=== PATIENT | male | born 1950 | race Caucasian/White ===

== ENCOUNTER 2018-02-01 18:44 | Inpatient (IN) | payer MEDICARE, OTHER ==
[~2018-02-01] VITALS: Ht 166.3 cm; Wt 136.2 kg
--- NOTE | ~2018-02-01 | WRIGHTHP ---
[place], [place] PATIENT HISTORY AND PHYSICAL EXAM NAME: JOSE LUIS LAY UNIT #: [id number] ROOM: 316 DOCTOR: KATHARINE PETERS MD BIRTHDATE: [birth year] DOS: 02/02/2018 INITIAL PSYCHIATRIC EVALUATION CHIEF COMPLAINT: "I have just been losing it, things haven't been right at [facility]." HISTORY OF PRESENT ILLNESS: This is a 67-year-old white male known to me from previous psychiatric admissions here to the [facility] as well as his stay at several long-term care facilities in the [facility]. The patient currently resides at [facility] and his behavior has escalated over the last several weeks prior to this admission. The patient has not been attending to his ADLs, nor has he been caring for his belongings. He has been increasingly more agitated and aggressive. He has been throwing things and breaking them. He has been yelling repeatedly at staff and has made threats to hurt staff. He states some of this is because he is not receiving the help he needs, but does ultimately admit that he has been very short fused and irritable over the last several weeks. Complicating matters is he has had some ongoing physical issues. Most recently, he was hospitalized at [facility] for GI bleed and required 2 units of blood. He was to have a colonoscopy done, but they were unable to do it because the prep was unsuccessful. He is waiting a repeat colonoscopy. He is admitted now to the [facility] though to stabilize psychiatrically, to engage in individual and lambert milieu activity, returning back then to [facility] when stable. PAST MEDICAL HISTORY: Remarkable for osteoarthritis, hypertension, GERD, hyperlipidemia, history of DVT, hypertensive retinopathy, morbid obesity and a long history of schizoaffective disorder. MENTAL STATUS: The patient is alert and oriented with some mild time gaps. Mood does seem to be euthymic with some anxious overtones. He does endorse increased mood lability and agitation with a very short fuse. He does also seem to be at times preoccupied and does not always answer questions quickly. He does process slowly. Short-term memory has mild gaps plane car. DIAGNOSIS: Schizoaffective disorder. PLAN: I will need to find out when he received his last Invega Sustenna dose. We will plan to reload him early and at a slightly higher level. His serum ammonia level is mildly elevated at 42. He is on lactulose 10 grams b.i.d. I will increase this to 20 grams b.i.d. and repeat a serum ammonia level in several days, engage in individual and lambert milieu activity with the plan to return back to [facility] when stable. [place], [place] PATIENT HISTORY AND PHYSICAL EXAM NAME: JOSE LUIS LAY UNIT #: [id number] ROOM: [facility] DOCTOR: KATHARINE PETERS MD BIRTHDATE: [birth year] KATHARINE PETERS MD CM:HISPHYS:PATIENT HISTORY AND PHYSICAL EXAMINATION [id number] KATHARINE PETERS MD 02/02/18 1107 interface
--- NOTE | ~2018-02-01 | PR ---
[place], [place] PROGRESS NOTE NAME: JOSE LUIS LAY UNIT #: [id number] ROOM: 316 DOCTOR: KATHARINE JEONG MD BIRTHDATE: [birth year] DOS: 02/06/2018 CHIEF COMPLAINT: "I think I am feeling better, thank you Dr. Jeong." SUMMARY OF THE VISIT: The patient was interviewed as he completed his breakfast. He had eaten the entire breakfast and was sitting, conversing with male peers. He stopped and engaged in conversation with me, reporting that he does feel that he is getting better. His depression has lessened and his mood lability and short fuse have also improved. He has not lost his temper for several days now and does seem to be tolerating the current medication regimen well. MENTAL STATUS: He is alert and oriented with some time gaps. Mood does seem to be strongly trending towards euthymia. Affect is much more appropriate. There is no elvis or hypomania. There are no overt auditory or visual hallucinations. No delusions, no paranoia. Short, intermediate and long-term memories are for the most part grossly intact. PLAN: I will check a lithium level in the morning to ensure that it is therapeutic, continue to engage in individual and lambert milieu activity with the plan to return to the least restrictive environment when psychiatrically stable. KATHARINE JEONG MD CM:PNTRANS [id number] KATHARINE JEONG MD 02/06/18 0950 interface
--- NOTE | ~2018-02-01 | PR ---
[place], [place] PROGRESS NOTE NAME: JOSE LUIS LAY UNIT #: [id number] ROOM: 316 DOCTOR: KATHARINE PETERS MD BIRTHDATE: [birth year] DOS: 02/03/2018 CHIEF COMPLAINT: "I hope I get to go back to [facility], I like it there, that is my home now." SUMMARY OF THE VISIT: The patient was interviewed as he rested quietly in bed. He engaged readily in conversation. He reports that he is starting to feel a little bit better, but is hopeful he can still go back to [facility]. He is fearful that they may not let him go back because his behavior was so problematic. MENTAL STATUS: He is alert and oriented with some time gaps. Mood does seem to be trending towards euthymia. Affect is more appropriate. There is still some mood lability and he is easily agitated at times, mood shifts quickly. There are no auditory or visual hallucinations. Memory has minor gaps, but otherwise he is intact. PLAN: I will go ahead and order his next dose of Invega Sustenna for February 17 at 156 mg IM. I will augment with Lithobid 300 mg twice daily. I will stay away from augmenting with Depakote given his elevated ammonia level. We will engage in individual and lambert milieu activity with the plan to return to the least restrictive environment when psychiatrically stable. KATHARINE PETERS MD CM:PNTRANS [id number] KATHARINE PETERS MD 02/03/18 1042 interface
--- NOTE | ~2018-02-01 | PR ---
[place], [place] PROGRESS NOTE NAME: JOSE LUIS LAY UNIT #: [id number] ROOM: 316 DOCTOR: KATHARINE JEONG MD BIRTHDATE: [birth year] DOS: 02/05/2018 CHIEF COMPLAINT: "I still feel up and down, but I am better Dr. Jeong." SUMMARY OF THE VISIT: The patient was interviewed in his room. He reports that he does think he is feeling better since I added the lithium. Nurses report he still had some periods yesterday where he burst into tears and stated that he was hopeful that he would get even more well than he is now. He is tolerating the current medication regimen well. MENTAL STATUS: He is alert and oriented with some time gaps. Mood does seem to be trending towards euthymia. Affect is more appropriate. There is no elvis or hypomania. There are no overt auditory or visual hallucinations, delusions or paranoia. Memory for the most part is intact. PLAN: I will increase his Lithobid from 300 mg twice a day to 3 times a day to try to improve his mood stability. We will engage in individual and lambert milieu activity, returning to [facility] when stable. KATHARINE JEONG MD CM:PNTRANS KATHARINE JEONG MD 02/05/18 0935 interface
--- NOTE | ~2018-02-01 | DS ---
[place], [place] DISCHARGE SUMMARY NAME: JOSE LUIS LAY UNIT #: [id number] ROOM: 316 DOCTOR: KATHARINE PETERS MD BIRTHDATE: [birth year] DOS: 02/07/2018 CHIEF COMPLAINT: "I have been losing at things, haven't been right at [place]." HISTORY OF PRESENT ILLNESS: This is a 67-year-old white male known to me from his previous psychiatric admissions to the [facility] as well as several stays in long-term care facilities in the [facility]. Most recently, the patient has been residing at [facility] in [place]. His behavior prior to this admission has escalated over the last several weeks, with the patient not attending to his ADLs. He has not been bathing, shaving or changing his clothes. He has not been taking care of his belongings. In fact, most recently, he was throwing his belongings around, breaking them and almost broke his television. When staff tried to intervene, he became increasingly more agitated and aggressive towards them. The patient does openly admit to being short fused and irritable and has found himself not sleeping or eating well as well as finding himself being unable to cope with the day to day activity at [facility]. He is admitted now to rule out any organic factors, to stabilize on medication, to engage in individual and lambert milieu activity with the ultimate plan to return to the least restrictive environment when psychiatrically stable. PAST MEDICAL HISTORY: Remarkable for osteoarthritis, hypertension, GERD, hyperlipidemia, hypertensive retinopathy, morbid obesity, history of DVT, history of a recent GI bleed as well as a long history of schizoaffective disorder. SUMMARY OF HOSPITAL COURSE: The patient was admitted to the unit where his Invega Sustenna dose was given slightly earlier and a slightly higher dose. He was receiving 117 mg IM every 30 days, instead I gave him 156 mg IM and to repeat that every 30 days since he seemed to be breaking just at the tail end of the dose ending. Additionally, routine screening examinations upon admission showed him to have a mildly elevated serum ammonia level at 42, so his lactulose was increased from 10 grams b.i.d. to 20 grams b.i.d. in an effort to control this. He continued to complain of feeling rather short fused and irritable. For this reason, his Invega was augmented with lithium, first at 300 mg twice daily and then at 300 mg 3 times a day with excellent results. I specifically avoided augmenting with Depakote given the fact that he was having already elevated serum ammonia levels and I did not want to tax his liver further. He tolerated the lithium well. He exhibited no tremor or other side effects from the lithium. A lithium level on the day of discharge was just barely subtherapeutic at 0.57. I will follow this once he has returned to [place]. He had improved sufficiently with the combination of higher dose Invega Sustenna and lithium to the point where he could easily return back to [facility] and have further followup. MENTAL STATUS AT DISCHARGE: He is alert and oriented to person, place and very approximate to time. Mood does seem to be strongly trending towards euthymia. Affect is much more appropriate. There is no elvis or hypomania. There are no overt auditory or visual hallucinations. No delusions, no paranoia. [place], [place] DISCHARGE SUMMARY NAME: JOSE LUIS LAY UNIT #: [id number] ROOM: [facility] DOCTOR: KATHARINE PETERS MD BIRTHDATE: [birth year] intermediate and long-term memories are relatively fully intact. FINAL DIAGNOSES: Schizoaffective disorder and obsessive compulsive disorder. DISPOSITION: The patient is to return back to [facility]. I will follow him upon his return there. All of his prescriptions have been printed and will be sent with him. Medically and psychiatrically he is stable. His biopsychosocial needs are adequately being met by the staff at [facility]. KATHARINE PETERS MD CM:DISCHHAIDER 0934 KATHARINE PETERS MD 02/07/1851 interface
--- NOTE | ~2018-02-01 | PR ---
[place], [place] PROGRESS NOTE NAME: JOSE LUIS LAY UNIT #: [id number] ROOM: 316 DOCTOR: KATHARINE PETERS MD BIRTHDATE: [birth year] DOS: 02/04/2018 CHIEF COMPLAINT: "I think I feel better. "I hope I get to go back to [place] soon." SUMMARY OF THE VISIT: The patient was interviewed as he sat in the dining area with male peers, waiting for breakfast. He engaged readily in conversation. He did report that he feels that his is lengthening and he is less irritable and on edge. He slept well, is eating well and notes no medication side effects whatsoever. MENTAL STATUS: He is alert and oriented to person, place and time. Mood does seem to be trending towards euthymia. Affect is more appropriate. There is no elvis or hypomania. There are no auditory or visual hallucinations. No delusions are present. No paranoia is present. Short, intermediate and long-term memory are intact. PLAN: I will maintain his current psychotropic regimen, continue to engage in individual and lambert milieu activity, returning to [facility] when psychiatrically stable. KATHARINE PETERS MD CM:PNTRANS 2 KATHARINE PETERS MD 02/04/18 0943 interface
[~2018-02-01 18:44] MED LIST: ALUM-MAG HYDRO360 ML PO; ASPIRIN81 M1 PO; ATARAX,VISTARIL50 MG PO; CLOMIPRAMINE HC25 MG PO; DEPAKOTE DR500 MG PO; DULCOLAX10 M1 RC; FENOFIBRATE43 M1 PO; FLEET ADULT ENEM1 EA R; FLUVOXAMINE MA100 MG PO; FLUVOXAMINE MA150 M1 PO; FLUVOXAMINE50 MG PO; FUROSEMIDE40 MG PO; GEODON80 MG PO; HYDROCODONE BIT1 T11 PO; INVEGA SUSTENN156 MG IM; INVEGA6 MG PO; LACTULOSE10 GM/15 M PO; LACTULOSE20 GM/30 M PO; MILK OF MA400 MG/5 M PO; MYLICON, MYLANT80 MG PO; NATURE'S BLEND F1 MG PO; OXYGEN NAS; SENNA8.6 MG PO; TYLENOL325 M1 PO; VERAPAMIL SR240 M1 PO; VISTARIL50 MG PO; VITAMIN D5000 UNIT PO; XARE15TA PO; ZESTRIL20 MG PO; ZIPRASIDONE HCL80 M1 PO
[2018-02-01] MEDS ORDERED: PALIPERIDONE ER3 MG PO (20:21)
[2018-02-01] MEDS ORDERED: Motrin,Rufen800 MG PO (20:22)
[2018-02-01] MEDS ORDERED: ROBITUSSIN5 ML PO (20:23)
[2018-02-01] MEDS ORDERED: ATIVAN0.5 MG PO (20:24)
[2018-02-01] MEDS ORDERED: DUONEB 3 MG/3 ML3 M1 INH (20:25)
[2018-02-01] MEDS ORDERED: XARELTO20 M1 PO (20:27)
[2018-02-01] MEDS ORDERED: CLOMIPRAMINE HC50 MG PO (20:33)
[2018-02-01] MEDS ORDERED: GOOD NEIGHBOR P20 MG PO (20:34)
[2018-02-01] MEDS ORDERED: FEOSOL325 MG PO (20:35)
[2018-02-01 21:42] VITALS: BP 137/68
[2018-02-01 22:41] VITALS: BP 137/68
[2018-02-01 23:28] VITALS: BP 137/68
[2018-02-02 00:25] LABS: BILIRUBIN NEGATIVE (NEGATIVE); BLOOD NEGATIVE (NEGATIVE); CLARITY CLEAR (CLEAR); COLOR YELLOW (YELLOW); GLUCOSE NEGATIVE (NEGATIVE); KETONE NEGATIVE (NEGATIVE); LEUKO ESTERASE NEGATIVE (NEGATIVE); NITRITE NEGATIVE (NEGATIVE); SPECIFIC GRAVITY 1.015 (1.005-1.030); UROBILINOGEN 0.2 E.U./dl (0.2-1.0)
[2018-02-02 01:24] LABS: EPITHELIAL CELLS 0-5; WBC 0-2 wbc/hpf (0-5)
[2018-02-02 07:16] LABS: BASO # 0.1 10*3/uL (0.0-0.1); BASO % 1.3 % (0.0-1.0); EOS # 0.3 10*3/uL (0.0-0.4); EOS % 3.1 % (1.0-4.0); HEMATOCRIT 44.3 % (42.0-52.0); HEMOGLOBIN 13.8 g/dl (14.0-18.0); LYMPH # 1.2 10*3/uL (1.3-4.4); LYMPH % 14.1 % (27.0-41.0); MEAN CELL VOLUME 80.3 fl (80.0-94.0); MEAN CORPUSCULAR HGB CONC 31.2 g/dl (33.0-37.0); MEAN PLATELET VOLUME 10.8 fl (9.6-12.3); MONO % 11.8 % (3.0-9.0); NEUT # 5.8 10*3/uL (2.3-7.9); PLATELET COUNT AUTOMATED 195 10*3/uL (130-400); RED BLOOD COUNT 5.52 10*6/uL (4.50-5.90); RED CELL DISTRI WIDTH 23.7 % (0-14.5); WHITE BLOOD COUNT 8.5 10*3/uL (4.8-10.8)
[2018-02-02 07:47] LABS: ALBUMIN 3.4 gm/dl (3.1-4.5); BUN 13 mg/dl (7-24); CHLORIDE 101 mmol/L (98-107); HDL CHOLESTEROL 44 mg/dl (40-60); POTASSIUM 4.1 mmol/L (3.5-5.1); SODIUM 137 mmol/L (136-145)
[2018-02-02 07:56] VITALS: BP 126/86
[2018-02-02 07:59] LABS: ALKALINE PHOSPHATASE 68 U/L (45-117); CHOLESTEROL 143 mg/dL (<200); CREATININE 0.72 mg/dL (0.70-1.30); LDL CHOLESTEROL 81 mg/dL (9-159); SGOT/AST 14 IU/L (3-35); SGPT/ALT 19 U/L (12-78); TRIGLYCERIDES 91 mg/dl (<150); VLDL CHOLESTEROL 18 mg/dL (6-40)
[2018-02-02 09:01] LABS: VITAMIN D, 25-HYDROXY 38.2 ng/mL (30-100)
[2018-02-02 20:21] VITALS: BP 121/76
[2018-02-03 08:05] VITALS: BP 124/74
[2018-02-03 20:00] VITALS: BP 138/83
[2018-02-04 07:48] VITALS: BP 114/64
[2018-02-04 20:18] VITALS: BP 128/88
[2018-02-05 07:45] VITALS: BP 115/88
[2018-02-05 20:00] VITALS: BP 140/84
[2018-02-06 07:36] VITALS: BP 139/82
[2018-02-06 20:00] VITALS: BP 127/71
[2018-02-07 08:09] VITALS: BP 137/80
[2018-02-07] MEDS ORDERED: LITHIUM CARB300 MG PO (09:28)
[2018-02-07] MEDS ORDERED: INVEGA SUSTENN156 MG IM (09:28)
[2018-02-07] MEDS ORDERED: LACTULOSE20 GM/30 M PO (09:28)
[2018-02-07] MEDS ORDERED: CLOMIPRAMINE HC25 MG PO (09:28)
[2018-02-07] MEDS ORDERED: HYDROCODONE-AC1 EAC1 PO (10:23)
== END 2018-02-07 13:41 | DRG 885 ==
LOC: 3N 18:44
PROVIDERS: Psychiatry & Neurology Psychiatry
DX: F25.9 Schizoaffective disorder, unspecified (principal); E66.01 Morbid (severe) obesity due to excess calories; Z99.81 Dependence on supplemental oxygen; F33.9 Major depressive disorder, recurrent, unspecified; Z68.42 Body mass index [BMI] 45.0-49.9, adult; F22 Delusional disorders; F91.9 Conduct disorder, unspecified; F41.9 Anxiety disorder, unspecified; M19.90 Unspecified osteoarthritis, unspecified site; I10 Essential (primary) hypertension; K21.9 Gastro-esophageal reflux disease without esophagitis; H52.10 Myopia, unspecified eye; H35.039 Hypertensive retinopathy, unspecified eye; E78.5 Hyperlipidemia, unspecified; F42.9 Obsessive-compulsive disorder, unspecified; Z87.81 Personal history of (healed) traumatic fracture; Z87.891 Personal history of nicotine dependence; Z84.89 Family history of other specified conditions; Z86.718 Personal history of other venous thrombosis and embolism; Z83.6 Family history of other diseases of the respiratory system; Z79.01 Long term (current) use of anticoagulants; Z79.82 Long term (current) use of aspirin; Z79.899 Other long term (current) drug therapy